=== PATIENT | male | born 2000 | race Caucasian/White ===

== ENCOUNTER 2023-10-02 06:56 | Day surgery (SDC) | payer OTHER, SELFPAY ==
[2023-10-02] VITALS (15 sets, daily range): BP systolic 104–135; BP diastolic 59–96; PULSE 65–94; RESP 14–18; TEMP 36.4–37.2; O2SAT 95–100; BMI 27.8
--- NOTE | 2023-10-02 07:03 | ED_ITS ---
HPI - Abdominal Pain General Time Seen by Provider: 07:03 Date Seen: 10/02/23 Chief Complaint: Abdominal Pain Stated Complaint: abdominal pain Time Seen by Provider: 10/02/23 07:03 Source: patient, RN notes reviewed and old records reviewed Mode of arrival: ambulatory Limitations: no limitations History of Present Illness HPI narrative: 23-year-old male who comes in with right lower quadrant abdominal pain this started a couple hours prior to coming the emergency department. This is accompanied by nausea and vomiting. Pain does radiate into the right testicle. No diarrhea constipation, denies urinary symptoms. Has not taken anything for this, no prior surgeries, does take sertraline. Related Data Home Medications Medication Instructions Recorded Confirmed sertraline 100 mg tablet 100 mg PO DAILY 10/02/23 10/02/23 Allergies Allergy/AdvReac Type Severity Reaction Status Date / Time No Known Drug Allergies Allergy Verified 10/02/23 07:02 [facility] Medical History (Updated 10/02/23 @ 07:45 by Charles Davis MD) Depression ?F32.A - Depression, unspecified (ICD-10) Anxiety ?F41.9 - Anxiety disorder, unspecified (ICD-10) Surgical History (Updated 10/02/23 @ 07:04 by Tray Pimentel RN) History of wisdom tooth extraction ?K08.409 - Partial loss of teeth, unspecified cause, unspecified class (ICD- 10) Social History Smoking Status: Never smoker Do you use any of these nicotine containing products: E-Cigarettes Second hand tobacco smoke exposure: No How often do you have a drink containing alcohol: monthly or less AUDIT-C Alcohol total score: 1 Non-prescribed substance use: marijuana (any form) Exam Narrative: Exam Narrative: General: Well-developed and well-nourished, no acute distress Head: Atraumatic and normocephalic Eyes: Pupils are equal reactive, extraocular motions intact, conjunctiva clear ENT: External nose and ears are normal, posterior pharynx without erythema or exudate Neck: No midline cervical tenderness, full spontaneous range of motion the neck, trachea midline, no adenopathy Heart: Regular rate and rhythm no murmurs or thrills Lungs: Clear to auscultation bilaterally without wheezes or crackles Abdomen: Soft, right lower quadrant and suprapubic tenderness, nondistended with active bowel sounds Musculoskeletal: No tenderness, deformity, or edema Neurologic: Awake, alert, and oriented x3, no gross focal neurologic deficits, cranial nerves intact as tested Psych: Mood and affect are appropriate Skin: No rashes Const: Vital Signs, click to edit/add: Vital Signs - 24 hr 10/02/23 07:00 Temperature 97.6 F Pulse Rate [Right Pulse Oximeter] 94 Respiratory Rate 18 Blood Pressure [Ri ght Upper Arm] 131/93 H Pulse Oximetry 99 Oxygen Delivery Me thod Room Air Course Course ED Course: Patient seen and examined, presents with right lower quadrant abdominal pain this morning. Also marked nausea vomiting. On exam here appears uncomfortable. Pain does radiate into the right testicle. Concern for possible appendicitis but kidney stone also in the differential, consider testicular torsion but normal lie and testicular tenderness, cremasteric reflex intact. Labs and CT scan of the abdomen pelvis ordered for initial evaluation. Toradol and Zofran for symptoms Reevaluation(s) Time of Reevaluation #1: 07:37 Reevaluation #1: With CT scan of the abdomen and pelvis independently interpreted by me consistent with acute appendicitis. Labs independently interpreted by me with white blood cell count 18.8. Patient recheck, pain is little better but declines further pain medications. Last oral intake was water at 5:00 a.[address]. care discussed with Dr. Voss, general surgery, will defer antibiotics until preop. Vital Signs Vital signs: Initial Vital Signs Temperature 97.6 F 10/02/23 07:00 Temperature Source Temporal Artery Scan 10/02/23 07:00 Pulse Rate 94 10/02/23 07:00 Respiratory Rate 18 10/02/23 07:00 Blood Pressure 131/93 H 10/02/23 07:00 Blood Pressure Mean 105 10/02/23 07:00 Blood Pressure Position Sitting 10/02/23 07:00 Pulse Oximetry 99 10/02/23 07:00 Oxygen Delivery Method Room Air 10/02/23 07:00 Vital Signs Temperature 97.6 F 10/02/23 07:00 Pulse Rate 94 10/02/23 07:00 Respiratory Rate 18 10/02/23 07:00 Blood Pressure 131/93 H 10/02/23 07:00 Pulse Oximetry 99 10/02/23 07:00 Oxygen Delivery Method Room Air 10/02/23 07:00 Temperature 97.6 F 10/02/23 07:00 Pulse Rate 94 10/02/23 07:00 Respiratory Rate 18 10/02/23 07:00 Blood Pressure 131/93 H 10/02/23 07:00 Pulse Oximetry 99 10/02/23 07:00 Oxygen Delivery Method Room Air 10/02/23 07:00 Medications Administered Medications: Discontinued Medications Generic Name Dose Route Start Last Admin Trade Name Erna PRN Reason Stop Dose Admin Ketorolac Tromethamine 15 mg 10/02/23 07:07 10/02/23 07:23 Ketorolac 15 Mg/Ml Inj IVP 10/02/23 07:08 15 mg ONCE ONE Administration Ondansetron HCl 4 mg 10/02/23 07:07 10/02/23 07:23 Ondansetron 2 Mg/Ml Inj IVP 10/02/23 07:08 4 mg ONCE ONE Administration MDM - Abdominal Pain Lab Data Labs: Lab Results 10/02/23 Range/Units 07:15 WBC 18.86 H (4.50-11.00) K/uL RBC 5.25 (4.30-5.90) m/uL Hgb 15.2 (13.5-17.5) gm/dL Hct 44.5 (37.0-53.0) % MCV 85 (80-100) fL MCH 29 (26-34) pg MCHC 34 (32-36) gm/dL RDW Coeff of Wilian 12.7 (11.5-15.5) % Plt Count 281 (140-440) K/uL Neut % (Auto) 75.8 H (42.0-72.0) % Lymph % (Auto) 16.2 L (20-44) % [place] % (Auto) 6.8 (0.0-11.0) % Eos % (Auto) 0.7 (0.0-7.0) % Baso % (Auto) 0.3 (0.0-3.0) % Neut # (Auto) 14.30 H (1.7-7.0) K/uL Lymph # (Auto) 3.10 H (0.90-2.90) K/uL [place] # (Auto) 1.30 H (0.00-0.90) K/UL Eos # (Auto) 0.10 (0.00-0.50) K/uL Baso # (Auto) 0.10 (0.00-0.30) K/uL Abs Immat Gran (auto) 0.00 (0.00-0.30) K/uL Imm/Tot Granulo (auto) 0.2 % Sodium 138 (135-149) mmol/L Potassium 3.4 L (3.6-5.1) mmol/L Chloride 107 (96-114) mmol/L Carbon Dioxide 22 (20-32) mmol/L Anion Gap 9 (7-15) mEq/L BUN 12 (5-24) mg/dL Creatinine 0.9 (0.5-1.5) mg/dL Estimated Creat Clear 142.51 Estimated GFR 125 ml/min Glucose 124 H (60-115) mg/dL Calcium 9.4 (8.4-10.6) mg/dL Discharge Plan Discharge Clinical Impression: Acute appendicitis Patient Disposition: XFER to OR Follow Up/Referrals: Provider,Not a Local [Primary Care Provider] -
--- NOTE | 2023-10-02 07:09 | CT_ITS ---
Patient: ABRAHAM HAYS Facility:?[facility] Patient ID:?[id number] Site Patient ID:?[id number]. Site :?[id number] Study:?CT-Abdomen/Pelvis WITHOUT-10/02/2023 7:38:30 AM Ordering Physician:?DR. ESPARZA Final Report: INDICATION: LOWER ABD PAIN. N/V APPY VS STONE TECHNIQUE: CT abdomen and pelvis without contrast, stone protocol. COMPARISON: None. FINDINGS: Kidney/ureters: Kidneys are normal in caliber. No kidney or ureteral stones and no hydronephrosis. No sign of perinephric inflammation. Ureters are normal in caliber. Liver/gallbladder/bile ducts: The liver is normal in size, shape and attenuation. Gallbladder is normal without visualized stones or inflammation. No biliary dilatation. Spleen/pancreas/adrenal glands: The spleen, adrenal glands and pancreas are within normal limits. GI tract: No bowel obstruction. Dilated fluid-filled appendix measuring up to 1.1 centimeters with mild-moderate surrounding inflammation. No periappendiceal fluid collection to suggest abscess. Abdominal wall/omentum/peritoneum: No free air. Trace free fluid within the pelvis. Lymph nodes: No lymphadenopathy. Pelvis: Unremarkable pelvis. Lower chest: Unremarkable. IMPRESSION: Acute appendicitis without evidence of yara perforation or abscess. Please note that all CT scans at this facility use dose modulation, iterative reconstruction, and/or weight-based dosing when appropriate to reduce radiation dose to as low as reasonably achievable. Dictated by Reji Hickman MD @ 10/02/2023 8:05:15 AM Signed by:?Reji Hickman MD @10/02/2023 8:05:15 AM (Electronic Signature)
[2023-10-02] MEDS: ONDANSETRON 2 MG/ML inj 4 MG IVP (07:23)
[2023-10-02] MEDS: KETOROLAC 15 MG/ML inj IVP (07:23)
[2023-10-02 07:35] LABS: Basophils Percent Auto 0.3 % (0.0-3.0); Eosinophils Percent Auto 0.7 % (0.0-7.0); Hematocrit 44.5 % (37.0-53.0); Hemoglobin* 15.2 gm/dL (13.5-17.5); Immature Granulocytes Pct Auto 0.2 %; Lymphocytes Percent Auto 16.2 % (20-44); Mean Corpuscular HGB Conc 34 gm/dL (32-36); Mean Corpuscular Hemoglobin 29 pg (26-34); Mean Corpuscular Volume 85 fL (80-100); Monocytes Percent Auto 6.8 % (0.0-11.0); Neutrophils Percent Auto 75.8 % (42.0-72.0); Platelet Count* 281 K/uL (140-440); RDW Coefficient of Variation % 12.7 % (11.5-15.5); Red Blood Count 5.25 m/uL (4.30-5.90); White Blood Count* 18.86 K/uL (4.50-11.00)
[2023-10-02 07:39] LABS: Slide Review Reflex No
[2023-10-02 07:51] LABS: Chloride* 107 mmol/L (96-114); Potassium* 3.4 mmol/L (3.6-5.1); Sodium* 138 mmol/L (135-149)
[2023-10-02 07:54] LABS: Anion Gap 9 mEq/L (7-15); Blood Urea Nitrogen* 12 mg/dL (5-24); Calcium* 9.4 mg/dL (8.4-10.6); Carbon Dioxide* 22 mmol/L (20-32); Creatinine* 0.9 mg/dL (0.5-1.5); Est. Creatinine Clearance* 142.51; Estimated Glomerular Filt Rate 125 ml/min; Glucose* 124 mg/dL (60-115)
[2023-10-02] MEDS: HYDROmorphone 0.5 mg/0.5 ml inj IVP (08:44)
--- NOTE | 2023-10-02 08:51 | PM.GSHP ---
History of Present Illness History of Present Illness Date Seen: 10/02/23 Chief complaint: abdominal pain Narrative: Ashok Darby is a 23 year old male who presented to the emergency department with right lower quadrant abdominal pain. Pain started at 5:00 a.m. this morning. Initially it was generalized in the middle of his abdomen, it is now more in the right lower quadrant. He has never had pain like this before. He does report some nausea and emesis in the emergency department. No fevers at home. Movement seems to make the pain worse. Pain medicines to help. He has never had abdominal surgery before. He is a student at [employer]. His mom is at the bedside with him this morning. Review of Systems Status of ROS: Reports: 10 or more systems reviewed and unremarkable except as noted in History and below [facility] Medical History (Updated 10/02/23 @ 07:45 by Charles Davis MD) Depression ?F32.A - Depression, unspecified (ICD-10) Anxiety ?F41.9 - Anxiety disorder, unspecified (ICD-10) Surgical History (Updated 10/02/23 @ 07:04 by Tray Pimentel RN) History of wisdom tooth extraction ?K08.409 - Partial loss of teeth, unspecified cause, unspecified class (ICD-10) Social History Smoking Status: Never smoker Do you use any of these nicotine containing products: E-Cigarettes Second hand tobacco smoke exposure: No How often do you have a drink containing alcohol: monthly or less AUDIT-C Alcohol total score: 1 Non-prescribed substance use: marijuana (any form) Meds Home Medications and Allergies Home Medications Medication Instructions Recorded Confirmed Type sertraline 100 mg tablet 100 mg PO DAILY 10/02/23 10/02/23 History Allergies Allergy/AdvReac Type Severity Reaction Status Date / Time No Known Drug Allergies Allergy Verified 10/02/23 07:02 Exam Narrative: Exam Narrative: General: Alert and oriented, no acute distress Respiratory: Equal breath rise bilaterally, maintained on room air CV: Well perfused Abdomen: Soft, tender to palpation right lower quadrant with some voluntary guarding, no rebound Const: Vital Signs, click to edit/add: Vital Signs - 24 hr 10/02/23 07:00 10/02/23 08:47 Temperature 97.6 F Pulse Rate 67 Pulse Rate [Right Pulse Oximeter] 94 Respiratory Rate 18 18 Blood Pressure 135/86 Blood Pressure [Ri ght Upper Arm] 131/93 H Pulse Oximetry 99 100 Oxygen Delivery Me thod Room Air Results Results Labs: Leukocytosis (18), some mild hypokalemia (3.4) Abdomen CT scan report/results: report reviewed and image reviewed Progress Note:A&P Assessment and plan (1) Acute appendicitis: Status: Acute Plan The patient presented with a history, exam and imaging findings consistent with acute appendicitis. No evidence of perforation on imaging. I discussed the treatment options with the patient including non-surgical and surgical options. I recommended laparoscopic appendectomy. The risks of surgery were reviewed with the patient including the risks of bleeding, post-operative wound or intra-abdominal infection, injury to abdominal structures and possible conversion to an open operation. We also discussed anesthetic complications including RI, stroke, respiratory failure and blood clots. The patient voiced an understanding of our conversation, had the opportunity to ask questions, agreed to accept the risks of surgery and asked that we proceed with surgery. -OR for laparoscopic appendectomy -preoperative antibiotics ordered, Terryn
[2023-10-02] MEDS: LACTATED RINGERS 1000 ML 1,000 ML 125 ML IV (09:58)
[2023-10-02] MEDS: PIPERACILLIN/TAZOBACTAM 3.375 GM in 0.9 % SODIUM CHLORIDE Mini-bag 100 ML IVPB (10:05)
[2023-10-02] MEDS: BUPIVACAINE 0.25% 30 ML INJECTION (11:00)
--- NOTE | 2023-10-02 11:16 | P.GSOP_ITS ---
Operative Note Date of procedure: 10/02/23 Pre-op diagnosis: Acute appendicitis Post-op diagnosis: Same, non perforated Type of Procedure: Laparoscopic appendectomy Indications: Patient is a 23-year-old male who presented to the emergency department with clinical workup and history consistent with acute appendicitis. Risks and benefits of operative intervention were discussed at length with the patient. Risks included but was not limited to: Bleeding, infection, risk of damage to surrounding structures, possible need for additional procedures, possible need to convert to an open operation and postoperative complications such as pneumonia, pulmonary emboli or MD. All questions and concerns were addressed with the patient agreeing to proceed. Procedure Description: After discussing the risks and benefits of the procedure, the patient signed informed consent.? The operative site was marked and the patient was brought to the operating room and placed on the operating table in supine position.? Care was taken to pad the patient's pressure points.?? The patient was then intubated by anesthesia.?? The operative site was then prepped and draped in the usual sterile fashion.? A time-out was then performed. Entrance to the abdomen was obtained via a 5 mm optical trocar in the left upper quadrant. The abdomen was insufflated and briefly surveyed for any signs of injury. There were none. A 12 mm port was placed at the umbilicus as well as a 5 mm port in the left lower quadrant under direct vision. The patient was then placed in Trendelenburg position with the right side up. The small bowel was gently moved out of the way and the appendix was in view. A small amount of di ssection was necessary to free the appendix from the surrounding pelvic attachments. This was grasped and pulled into view. A mesenteric window was created between the appendix and the mesoappendix. A 30 mm Endo-WAQAS vascular load stapler was then used to transect the mesoappendix. The body of the appendix was slightly twisted at the base. This was untwisted and an additional area of mesentery noted at the base of the appendix. A 45 mm vascular load stapler was then used to take down the mesoappendix to fully visualize the base of the appendix from the cecum. The appendix was taken with a 60 mm endo-WAQAS bowel load stapler at the base. The staple lines were inspected for bleeding. A few pinpoint areas of bleeding on the mesentery were controlled with 5 mm clips. Hemostasis was excellent after the placement of these. The appendix was then removed from the abdomen using an Endo-Catch bag. The specimen was sent to pathology. The 12 mm port site fascia was closed with 0 Vicryl. All other ports were removed under direct visualization. The skin was then closed with absorbable subcuticular suture. Sterile dressings were then applied. Instrument sponge and needle counts were correct at the end of the case. The patient was then woken and transported to the PACU in stable condition. Findings: Acute appendicitis, non perforated. Anesthesia: GETA Surgeon: Nichole Voss MD Estimated blood loss (mL): 5 Specimen: Appendix Condition: stable Disposition: PACU
--- NOTE | 2023-10-02 11:22 | W.ANESCHARGE ---
Anesthesia Charges Start Date/Time Anesthesia Start Date: 10/02/23 Anesthesia Start Time: 09:58 Stop Date/Time Anesthesia Stop Date: 10/02/23 Anesthesia Stop Time: 11:21 Summary Emergency: [employer]
--- NOTE | 2023-10-02 11:23 | PM.DS1 ---
DS: Providers Provider Date Seen: 10/02/23 Primary care physician: Not a Local Provider Attending Physician on discharge: Nichole Voss MD DS: Summary Hospital Course Hospital Course: Patient presented to the emergency department with clinical history and workup consistent with acute appendicitis. He underwent a laparoscopic appendectomy. No evidence of perforation and procedure tolerated well. At the time of discharge patient was tolerating a regular diet, ambulating independently, voiding without difficulty and pain was well controlled. Time Spent with Patient Time attestation: Total time spent providing and/or coordinating discharge services: Exam Narrative: Exam Narrative: Please see exam from same date. Const: Vital Signs, click to edit/add: Vital Signs - 24 hr 10/02/23 07:00 10/02/23 08:47 Temperature 97.6 F Pulse Rate 67 Pulse Rate [Right Pulse Oximeter] 94 Respiratory Rate 18 18 Blood Pressure 135/86 Blood Pressure [Ri ght Upper Arm] 131/93 H Pulse Oximetry 99 100 Oxygen Delivery Me thod Room Air DS: Data Data Completed and Pending Labs on day of discharge: Labs from last 24 hours 10/02/23 07:15 WBC 18.86 H RBC 5.25 Hgb 15.2 Hct 44.5 MCV 85 MCH 29 MCHC 34 RDW Coeff of Wilian 12.7 Plt Count 281 Neut % (Auto) 75.8 H Lymph % (Auto) 16.2 L [place] % (Auto) 6.8 Eos % (Auto) 0.7 Baso % (Auto) 0.3 Neut # (Auto) 14.30 H Lymph # (Auto) 3.10 H [place] # (Auto) 1.30 H Eos # (Auto) 0.10 Baso # (Auto) 0.10 Abs Immat Gran (auto) 0.00 Imm/Tot Granulo (auto) 0.2 Sodium 138 Potassium 3.4 L Chloride 107 Carbon Dioxide 22 Anion Gap 9 BUN 12 Creatinine 0.9 Estimated Creat Clear 142.51 Estimated GFR 125 Glucose 124 H Calcium 9.4 Discharge Plan Discharge Disposition: Home w/ Parent or Adult Discharging Surgeon: Nichole Voss Follow-Up Appointment: Two week follow-up Prescriptions: New hydrocodone-acetaminophen 5-325 mg tablet 1 tab PO Q6H PRN (Reason: pain) Qty: 15 0RF senna 8.6 mg capsule 8.6 mg PO DAILY PRN (Reason: constipation) Qty: 90 0RF Continued sertraline 100 mg tablet 100 mg PO DAILY Activity Level: No strenuous activity Activity Detail: Activity as tolerated. Avoid strenuous activity. No lifting greater than 20 lb for 2 weeks. Discharge Diet: Regular Patient Instructions: Hydrocodone/Acetaminophen (By mouth), Senna (By mouth) (Sen, Senna-lax), Laparoscopic Appendectomy (DC) Additional Instructions: You were prescribed a narcotic pain medication. In addition you may supplement with Tylenol and/or ibuprofen. Be sure to not exceed greater than 4 g of Tylenol in a 24 hour period. While on narcotic pain medicine please take stool softeners. A prescription of stool softeners has been sent to the pharmacy. Stop if having greater than 2 stools per day. You have Steri-Strips dressings in place, allow these to fall off on their own. Okay to shower starting tomorrow. Do not soak in a bath or swim for 2 weeks. Follow-up with Dr. Voss in 2-3 weeks. Please call if you are experiencing severe pain, nausea, vomiting, difficulty urinating, fever or not had a bowel movement in 4 days after surgery. Follow-up: Nichole Voss MD [Staff Physician] - 10/14/23 8:15 am ([facility] for follow-up.) Provider,Not a Local [Primary Care Provider] - Discharge Orders: Discharge Order (Routine); Ordered 10/02/23 Ordered By: Nichole Voss
--- NOTE | 2023-10-02 16:23 | PC.NURSE ---
Same Day Discharge: The patient discharged home with his mom this afternoon. The patient has 2 lap sites and 1 through the umbilicus, small amount of bloody drainage. Steri strips are intact. Educated regarding pain management and guidelines to follow as far as bathing, lifting and wound care. Tolerated ambulating in the hallway with mild discomfort. Educated the patient on the I/S and regarding Tylenol and ice pack use for pain management. Coral MCCARTNEY BSN
--- NOTE | 2023-10-07 08:06 | PC.NURSE ---
Late entry order ~ M/S Recovery entered in error. Same day surgery order effective 10/02/23.
== END 2023-10-02 16:04 | disposition home or self-care (01) ==
LOC: ED 08:48 → OR 09:54 → MEDSURG 12:00
PROVIDERS: Emergency Provider Family Medicine; Visit Provider Surgery
PROC: 0DTJ4ZZ Resection of Appendix, Percutaneous Endoscopic Approach (ICD-10-PCS; CPT 44970; principal; 2023-10-02 09:15)
DX: K35.80 Unspecified acute appendicitis (principal); R10.31 Right lower quadrant pain
CPT/HCPCS: 44970; 00840; 36415; 74176; 80048; 81001; 85025; 88304; 99140; 99285; J0330; J0665; J1170; J1885; J2250; J2405; J2543; J2704; J2710; J3010; J7120